=== PATIENT | male | born 1970 | race Caucasian/White ===

== ENCOUNTER 2017-03-31 20:38 | Emergency (ER) | payer OTHER ==
--- NOTE | 2017-03-31 21:09 | ER PHYSICIAN DOCUMENTATION ---
Physician Documentation [facility] Name:Osmani Howell Age:47 yrs Sex:Male :1970 Arrival Date:03/31/2017 Time:20:38 Bed2 Private MD: Reggie Gonzales Disposition: 03/31/17 21:03 Transfer ordered to [facility]. Diagnosis is Esophageal Stricture. - Reason for transfer: Specialty. - Accepting physician is [facility]. - Condition is Good. - Problem is an ongoing problem. - Symptoms are unchanged. COBRA Form completed? Transfer - Mode of Transportation Private Vehicle HPI: 03/31 20:45 This 47 yrs old Male presents to ER via Walk In with complaints of Foreign tl1 Body In Throat. 20:45 The patient or guardian reports the patient has a suspected foreign body, that has been tl1 ingested. The reported likely foreign body is piece of meat. Onset: The symptom(s)/episode began/occurred suddenly, 1.5 hour(s) ago. Current symptoms: foreign body sensation, pain with swallowing water. Treatment Prior to Arrival: none. The patient has experienced similar episodes in the past, several times. Historical: - Allergies: No known drug Allergies; - Tetanus: < 10 years. - Ebola Screening: : Patient negative for fever greater than or equal to 101.5 degrees Fahrenheit, and additional compatible Ebola Virus Disease symptoms. Patient denies exposure to infectious person. Patient denies travel to an Ebola-affected area in the 21 days before illness onset. No symptoms or risks identified at this time. . - Immunization history: Flu Vaccine < 1 year. - Social history: Smoking status: Patient states was never smoker of tobacco. ROS: 20:56 ENT: Positive for difficulty swallowing. tl1 20:56 All other systems are negative. Exam: 20:56 Constitutional: This is a well developed, well nourished patient who is awake, alert, tl1 and in no acute distress. 20:56 Head/Face: Normocephalic, atraumatic. tl1 20:56 Eyes: Exam is negative for acute changes. 20:56 ENT: Exam is negative for acute changes. 20:56 Cardiovascular: Rate: normal, Rhythm: regular, Heart sounds: normal. 20:56 Respiratory: the patient does not display signs of respiratory distress, Respirations: normal, Breath sounds: are normal. 20:56 Skin: Exam negative for acute changes. 20:56 Neuro: Exam negative for acute changes. Vital Signs: 20:47 BP 180 / 82; Pulse 88; Resp 19; Temp 98(O); Pulse Ox 100% on R/A; Weight 124.74 kg; bw2 Height 6 ft. 2 in. (187.96 cm); Pain 0/10; 20:47 Body Mass Index 35.31 (124.74 kg, 187.96 cm) bw2 MDM: 20:57 Data reviewed: vital signs, nurses notes, and as a result, I will *Transfer Patient. tl1 Physician consultation: DR HERNÁNDEZ was called at 20:55, was contacted at 20:58, regarding patient's condition, need to come to ED to see patient, after a discussion of the case, a recommendation for transfer for higher level of care is made, TO [facility] ED FOR EGD. 21:03 Patient medically screened. tl1 Dispensed Medications: No medications were administered Signatures: Reggie Rodriguez MD MD tl1 Jennifer Carmen 2
--- NOTE | 2017-03-31 21:09 | ER NURSING DOCUMENTATION ---
Nurse's Notes [facility] Name:Osmani Howell Age:47 yrs Sex:Male :1970 Arrival Date:03/31/2017 Time:20:38 Bed2 Private MD: Diagnosis:Esophageal Stricture Presentation: 03/31 20:45 Presenting complaint: Patient states: pt states he has steak stuck in his throat. bw2 breathing is not obstructed. Transition of care: [place]. 20:45 Method Of Arrival: Walk In bw2 20:45 Acuity: VICKIE 3 bw2 Triage Assessment: 20:47 General: Appears in no apparent distress, Behavior is anxious, appropriate for age, bw2 cooperative. Pain: Denies pain. Historical: - Allergies: No known drug Allergies; - Tetanus: < 10 years. - Ebola Screening: : Patient negative for fever greater than or equal to 101.5 degrees Fahrenheit, and additional compatible Ebola Virus Disease symptoms. Patient denies exposure to infectious person. Patient denies travel to an Ebola-affected area in the 21 days before illness onset. No symptoms or risks identified at this time. . - Immunization history: Flu Vaccine < 1 year. - Social history: Smoking status: Patient states was never smoker of tobacco. Screenin:48 Infectious Disease Risk None. Abuse screen: Denies threats or abuse. Nutritional bw2 screening: No deficits noted. Assessment: 20:48 See Triage Assessment done by same RN. EENT: Reports food bolus in throat . bw2 Respiratory: Breath sounds are clear bilaterally. Vital Signs: 20:47 BP 180 / 82; Pulse 88; Resp 19; Temp 98(O); Pulse Ox 100% on R/A; Weight 124.74 kg; bw2 Height 6 ft. 2 in. (187.96 cm); Pain 0/10; 20:47 Body Mass Index 35.31 (124.74 kg, 187.96 cm) bw2 ED Course: 20:42 Patient arrived in ED. dp 20:45 Jennifer Carmen is Primary Nurse. bw2 20:46 Triage completed. bw2 20:48 Valuables Remains with patient. bw2 20:54 Reggie Rodriguez MD is Attending Physician. tl1 Administered Medications: No medications were administered Outcome: 21:03 ER care complete, transfer ordered by MD. tl1 21:08 Transferred: Patient will be transferred to: [facility]. Facility bw2 Acceptance Time: March 31, 2017 at 21:05 Patient's face sheet was faxed to accepting facility. Face Sheet included patient's name, address, age, gender, contact information and insurance information. Patient will be transported by: Private Vehicle. Nurse and Physician Charting and Notes were sent to Accepting Facility. All tests and/or procedures with results, if applicable, were sent to accepting facility. 21:08 Condition: good 21:08 Discharge Assessment: Patient awake, alert and oriented x 3. No cognitive and/or functional deficits noted. Patient verbalized understanding of disposition instructions. 21:08 Instructed on need for transfer Demonstrated understanding of instructions. 21:09 Patient left the ED. bw2 Signatures: Reggie Rodriguez MD MD 1 Jennifer Carmen bw2 Sari Hernandez
== END 2017-03-31 21:09 | disposition short-term general hospital (02) ==
LOC: ER 20:38
DX: K22.2 Esophageal obstruction (principal); R13.10 Dysphagia, unspecified
CPT/HCPCS: 99285